=== PATIENT | female | born 1985 | race Caucasian/White ===

== ENCOUNTER → 2016-12-12 | Outpatient (CLI) | payer OTHER ==
[2016-12-12 14:22] LABS: BASO % 0.1 % (0.0-2.0); EOS % 0.1 % (0-4.0); GRAN # 7.5 (1.4-6.5); GRAN % 72.1 % (42.2-75.2); HEMATOCRIT 38.4 % (37.0-47.0); HEMOGLOBIN 13.1 g/dl (12.5-16.0); LYMPH # 1.9 (1.2-3.4); LYMPH % 17.9 % (20.0-51.0); MEAN CELL VOLUME 89 fl (80.0-100.0); MEAN CORPUSCULAR HEMOGLOBIN 30 pg (27.0-31.0); MEAN CORPUSCULAR HGB CONC 34 g/dl (33.0-37.0); MEAN PLATELET VOLUME 11.6 fl (7.4-10.4); MONO % 9.5 % (1.7-9.3); PLATELET COUNT 205 K/mm3 (130-400); RED BLOOD COUNT 4.31 M/mm3 (4.10-5.30); REDCELL DISTRIBUTION WIDTH-CV 12.4 % (11.5-14.5); WHITE BLOOD COUNT 10.3 K/mm3 (4.8-10.8)
[2016-12-12 14:38] LABS: ADJUSTED CALCIUM 9.3 mg/dL (8.4-10.2); BILIRUBIN,TOTAL 0.4 mg/dL (0.0-1.0); CALCIUM 9.3 mg/dL (8.4-10.2); CREATININE, serum 0.53 mg/dL (0.52-1.25); TOTAL PROTEIN 6.7 gm/dL (6.4-8.2)
[2016-12-12 15:06] LABS: THYROID STIMULATING HORMONE 0.037 uIU/mL (0.465-4.680)
== END ==
LOC: SUN.DIA 11:15 → COL.LAB 11:28
PROVIDERS: Family Medicine
DX: Z13.29 Encounter for screening for other suspected endocrine disorder (principal); E66.3 Overweight

== ENCOUNTER → 2016-12-26 | Outpatient (CLI) | payer OTHER | LOC: COL.LAB 09:39 | DX: R94.6 Abnormal results of thyroid function studies (principal) ==

== ENCOUNTER → 2017-01-16 | Outpatient (CLI) | payer OTHER | LOC: COL.RAD 10:16 | DX: E04.2 Nontoxic multinodular goiter (principal); R94.6 Abnormal results of thyroid function studies; T83.39XA Other mechanical complication of intrauterine contraceptive device, initial encounter; Z97.5 Presence of (intrauterine) contraceptive device ==

== ENCOUNTER → 2017-01-24 | Outpatient (CLI) | payer OTHER ==
[~2017-01-24] VITALS: Ht 149.9 cm; Wt 53.5 kg
[2017-01-24 09:05] VITALS: BP 113/69; PULSE 71
[2017-01-24 10:18] VITALS: BP 136/77; PULSE 72
== END ==
LOC: COL.RAD 08:29
DX: E04.2 Nontoxic multinodular goiter (principal); Z72.0 Tobacco use
CPT/HCPCS: 25581

== ENCOUNTER → 2018-10-09 | Outpatient (CLI) | payer OTHER ==
[~2018-10-09] MED LIST: PRENATAL VITAMI1 TA5 PO
[2018-10-09 17:07] LABS: CHOLESTEROL RISK RATIO 3.9
== END ==
LOC: ZCOL.LAB 16:11
PROVIDERS: Family Medicine
DX: Z13.1 Encounter for screening for diabetes mellitus (principal); Z13.220 Encounter for screening for lipoid disorders

== ENCOUNTER → 2018-11-27 | Outpatient (CLI) | payer OTHER | LOC: COL.LAB 07:52 | PROVIDERS: Family Medicine | DX: Z30.017 Encounter for initial prescription of implantable subdermal contraceptive (principal) ==